=== PATIENT | female | born 1970 | race Caucasian/White ===

== ENCOUNTER → 2022-03-04 | Outpatient (CLI) | payer BC | LOC: MAMO 10:52 → KOH-I 10:52 | DX: Z12.31 Encounter for screening mammogram for malignant neoplasm of breast (principal) | CPT/HCPCS: 76536; 77063; 77067 ==

== ENCOUNTER → 2022-03-17 | Day surgery (SDC) | payer BC ==
[~2022-03-17] MED LIST: LANSOPRAZOLE30 MG PO; LOSARTAN POTAS100 MG PO; PROZAC 10 MG CA10 MG PO
== END | disposition home or self-care (01) ==
LOC: OR 08:44
DX: Z12.11 Encounter for screening for malignant neoplasm of colon (principal); K29.50 Unspecified chronic gastritis without bleeding; K31.9 Disease of stomach and duodenum, unspecified; K64.0 First degree hemorrhoids; E66.8 Other obesity; I10 Essential (primary) hypertension; E78.5 Hyperlipidemia, unspecified; F41.9 Anxiety disorder, unspecified; K21.9 Gastro-esophageal reflux disease without esophagitis; Z88.8 Allergy status to other drugs, medicaments and biological substances; Z68.34 Body mass index [BMI] 34.0-34.9, adult; Z79.899 Other long term (current) drug therapy
CPT/HCPCS: 43239; G0121; 84703; J2405; J2704; J3010; J7040